=== PATIENT | male | born 1970 | race Two or more races ===

== ENCOUNTER 2021-05-03 15:50 | Emergency (ER) | payer MEDICAID ==
[~2021-05-03] VITALS: Ht 182.9 cm; Wt 91.0 kg
[2021-05-03 18:26] LABS: BASOPHILS % 0.6 % (0.0-2.0); EOSINOPHILS % 3.6 % (0.0-5.0); HEMATOCRIT. 46.7 % (42.0-52.0); HEMOGLOBIN. 16.1 g/dL (14.0-18.0); LYMPHOCYTES % 30.3 % (20.0-50.0); MEAN CORPUSCULAR HEMOGLOBIN 30.5 pg (28.0-32.0); MEAN CORPUSCULAR VOLUME 88.5 fL (80.0-94.0); MEAN PLATELET VOLUME 8.6 fl (7.4-10.4); MONOCYTES % 14.6 % (2.0-8.0); NEUTROPHILS % 50.9 % (40.0-76.0); PLATELET 205 x1000/uL (130-400); RED BLOOD CELL COUNT 5.27 mill/uL (4.7-6.1); RED CELL DISTRIBUTION WIDTH 13.7 % (11.6-14.6)
[2021-05-03 18:30] LABS: CHLORIDE 108 mEq/L (98-107)
[2021-05-03 18:33] LABS: PROTHROMBIN TIME 10.3 sec (9.6-11.0)
[2021-05-03 19:14] LABS: CLARITY URINE CLEAR (CLEAR); COLOR URINE YELLOW (YELLOW); KETONES URINE NEGATIVE (NEGATIVE); LEUKOCYTE ESTERASE URINE NEGATIVE (NEGATIVE); NITRITE URINE NEGATIVE (NEGATIVE); OCCULT BLOOD URINE NEGATIVE (NEGATIVE); PH URINE 5.5 (4.5-8.0); PROTEIN URINE NEGATIVE (NEGATIVE); SPECIFIC GRAVITY URINE 1.013 (1.005-1.030); UROBILINOGEN URINE 0.2 E.U./dL (0.2-1.0)
[2021-05-03] MEDS ORDERED: MAGNESIUM CITRATE 300ML SOLUTION PO ONE (19:15)
[2021-05-03] MEDS ORDERED: MAGNESIUM/ALUMINUM HYDROXIDE/SIMETHICONE 30ML UDC PO ONE (19:15)
[2021-05-03] MEDS ORDERED: KETOROLAC 15MG/ML VIAL IV ONE (19:15)
[2021-05-03] MEDS ORDERED: FAMOTIDINE 20MG/2ML VIAL IV ONE (19:15)
[2021-05-03] MEDS ORDERED: NA P230E RC (20:53)
[2021-05-03 21:12] VITALS: BP 118/84
== END 2021-05-03 21:13 | disposition home or self-care (01) ==
LOC: ER 15:50
DX: K59.00 Constipation, unspecified (principal); Z88.0 Allergy status to penicillin
CPT/HCPCS: 36415; 74022; 80053; 81003; 83690; 85025; 85610; 96374; 99284; J1885